=== PATIENT | female | born 1955 | race Caucasian/White ===

== ENCOUNTER 2024-04-23 07:03 | Outpatient (CLI) | payer BC, SELFPAY ==
--- NOTE | 2024-04-23 07:15 | CRLHL7_ITS ---
For Patients: As a result of the Century Cures Act, medical imaging exams and procedure reports are released immediately into your electronic medical record. You may view this report before your referring provider. If you have questions, please contact your health care provider. CLINICAL HISTORY: polycythemia vera, hepatic splenomegaly COMPARISON: none TECHNIQUE: Real time dykes scale imaging and color Doppler analysis was performed of the abdomen. FINDINGS: Benign intrahepatic cyst within the left hepatic lobe is present measuring 1.2 x 1.3 x 1.2 cm. The liver measures 17.3 cm. Mild increased echotexture of the liver noted. Normal patency of the main portal vein. The spleen measures 14.6 cm. The visualized pancreas appears normal. The proximal abdominal aorta and IVC appear normal. There is no evidence of ascites. The gallbladder is of normal size and there is no evidence of sludge or stones within the gallbladder lumen. The gallbladder wall measures 1 mm in thickness. The common bile duct measures 4.8 mm in size within the terrell hepatis. Simple cyst right kidney measures 1.5 x 2.0 x 1.2 cm. The right kidney measures 11.0 cm in length and the left kidney measures 11.3 cm. There is no evidence of a renal calculus or hydronephrosis. IMPRESSION: Splenomegaly. Fatty liver. Dictated by Lazaro Jung MD @ 04/24/2024 6:27:13 AM (Electronically Signed)
== END 2024-04-23 07:04 | disposition home or self-care (01) ==
PROVIDERS: Visit Provider Internal Medicine Hematology & Oncology
DX: D45 Polycythemia vera (principal); K76.0 Fatty (change of) liver, not elsewhere classified; R16.1 Splenomegaly, not elsewhere classified
CPT/HCPCS: 76700

== ENCOUNTER 2024-08-12 09:30 | Outpatient (RCR) | payer BC, SELFPAY ==
[2024-04-14 11:34] LABS: Basophils Absolute Auto 0.05 K/uL (0.00-0.30); Basophils Percent Auto 0.6 % (0.0-3.0); Eosinophils Absolute Auto 0.14 K/uL (0.00-0.50); Eosinophils Percent Auto 1.7 % (0.0-7.0); Hematocrit 39.4 % (33.0-51.0); Hemoglobin* 11.5 gm/dL (12.0-16.0); Immature Granulocytes Abs Auto 0.01 K/uL (0.00-0.30); Immature Granulocytes Pct Auto 0.1 %; Lymphocytes Percent Auto 16.3 % (20-44); Mean Corpuscular HGB Conc 29 gm/dL (32-36); Mean Corpuscular Hemoglobin 23 pg (26-34); Mean Corpuscular Volume 77 fL (80-100); Monocytes Percent Auto 4.1 % (0.0-11.0); Neutrophils Percent Auto 77.2 % (42.0-72.0); Platelet Count* 544 K/uL (140-440); RDW Coefficient of Variation % 15.3 % (11.5-15.5); Red Blood Count 5.09 m/uL (4.00-5.20); White Blood Count* 8.06 K/uL (4.50-11.00)
[2024-04-14 11:36] LABS: Slide Review Reflex No
[2024-04-14 11:55] LABS: Albumin* 4.5 g/dL (3.3-5.0); Chloride* 105 mmol/L (96-114); Potassium* 3.6 mmol/L (3.6-5.1); Sodium* 139 mmol/L (135-149)
[2024-04-14 11:57] LABS: Anion Gap 4 mEq/L (7-15); Aspartate Amino Transferase* 22 U/L (12-35); Bilirubin Total* 0.3 mg/dL (0.1-1.5); Carbon Dioxide* 30 mmol/L (20-32); Creatinine* 0.6 mg/dL (0.5-1.5); Est. Creatinine Clearance* 43.18; Estimated Glomerular Filt Rate 98 ml/min
[2024-04-14 11:58] LABS: Alanine Aminotransferase* 11 U/L (4-35); Alkaline Phosphatase* 44 U/L (40-150); Blood Urea Nitrogen* 9 mg/dL (7-30); Calcium* 9.7 mg/dL (8.4-10.6); Glucose* 88 mg/dL (60-115); Lactate Dehydrogenase* 150 U/L (120-246); Total Protein* 6.4 g/dL (6.0-8.3)
[2024-05-12 09:35] LABS: Basophils Absolute Auto 0.05 K/uL (0.00-0.30); Basophils Percent Auto 0.8 % (0.0-3.0); Eosinophils Percent Auto 1.6 % (0.0-7.0); Hematocrit 42.5 % (33.0-51.0); Hemoglobin* 12.4 gm/dL (12.0-16.0); Immature Granulocytes Abs Auto 0.01 K/uL (0.00-0.30); Immature Granulocytes Pct Auto 0.2 %; Lymphocytes Percent Auto 18.3 % (20-44); Mean Corpuscular HGB Conc 29 gm/dL (32-36); Mean Corpuscular Hemoglobin 23 pg (26-34); Mean Corpuscular Volume 79 fL (80-100); Neutrophils Percent Auto 75.1 % (42.0-72.0); Platelet Count* 537 K/uL (140-440); RDW Coefficient of Variation % 17.7 % (11.5-15.5); Red Blood Count 5.38 m/uL (4.00-5.20); White Blood Count* 6.07 K/uL (4.50-11.00)
[2024-05-12 09:40] LABS: Slide Review Reflex No
--- NOTE | 2024-05-19 14:15 | ONC.NURNOTE ---
DOSE CHANGE CALLED TO [facility]I INCREASE HYDREA TO 1000MG sat,SAT, SUN 500 MG , , , PATIENT CORRECTLY STATED DOSE CHANGE APPTS REVIEWED FOR NEXT MONTH REFILLS NEEDED
[2024-06-16 10:21] LABS: Basophils Absolute Auto 0.03 K/uL (0.00-0.30); Basophils Percent Auto 0.5 % (0.0-3.0); Eosinophils Absolute Auto 0.07 K/uL (0.00-0.50); Eosinophils Percent Auto 1.2 % (0.0-7.0); Hematocrit 41.6 % (33.0-51.0); Hemoglobin* 12.5 gm/dL (12.0-16.0); Immature Granulocytes Abs Auto 0.01 K/uL (0.00-0.30); Immature Granulocytes Pct Auto 0.2 %; Mean Corpuscular HGB Conc 30 gm/dL (32-36); Mean Corpuscular Hemoglobin 25 pg (26-34); Mean Corpuscular Volume 82 fL (80-100); Monocytes Percent Auto 4.4 % (0.0-11.0); Neutrophils Percent Auto 76.7 % (42.0-72.0); Platelet Count* 418 K/uL (140-440); RDW Coefficient of Variation % 19.2 % (11.5-15.5); Red Blood Count 5.06 m/uL (4.00-5.20); White Blood Count* 5.69 K/uL (4.50-11.00)
[2024-06-16 10:23] LABS: Slide Review Reflex No
[2024-06-16 10:37] LABS: Albumin* 4.7 g/dL (3.3-5.0); Chloride* 106 mmol/L (96-114)
[2024-06-16 10:38] LABS: Potassium* 3.9 mmol/L (3.6-5.1); Sodium* 139 mmol/L (135-149)
[2024-06-16 10:40] LABS: Anion Gap 5 mEq/L (7-15); Bilirubin Total* 0.3 mg/dL (0.1-1.5); Blood Urea Nitrogen* 11 mg/dL (7-30); Carbon Dioxide* 28 mmol/L (20-32); Creatinine* 0.7 mg/dL (0.5-1.5); Est. Creatinine Clearance* 43.18; Estimated Glomerular Filt Rate 95 ml/min; Total Protein* 6.8 g/dL (6.0-8.3)
[2024-06-16 10:41] LABS: Calcium* 9.6 mg/dL (8.4-10.6)
[2024-06-16 10:49] LABS: Aspartate Amino Transferase* 32 U/L (12-35)
[2024-06-16 10:50] LABS: Alanine Aminotransferase* 10 U/L (4-35); Alkaline Phosphatase* 46 U/L (40-150); Glucose* 103 mg/dL (60-115); Lactate Dehydrogenase* 152 U/L (120-246)
[2024-07-15 09:48] LABS: Basophils Absolute Auto 0.03 K/uL (0.00-0.30); Basophils Percent Auto 0.6 % (0.0-3.0); Eosinophils Absolute Auto 0.09 K/uL (0.00-0.50); Eosinophils Percent Auto 1.7 % (0.0-7.0); Hematocrit 41.6 % (33.0-51.0); Hemoglobin* 12.8 gm/dL (12.0-16.0); Immature Granulocytes Abs Auto 0.01 K/uL (0.00-0.30); Immature Granulocytes Pct Auto 0.2 %; Lymphocytes Percent Auto 19.3 % (20-44); Mean Corpuscular HGB Conc 31 gm/dL (32-36); Mean Corpuscular Hemoglobin 27 pg (26-34); Mean Corpuscular Volume 87 fL (80-100); Monocytes Percent Auto 4.6 % (0.0-11.0); Neutrophils Percent Auto 73.6 % (42.0-72.0); Platelet Count* 334 K/uL (140-440); RDW Coefficient of Variation % 18.4 % (11.5-15.5); White Blood Count* 5.43 K/uL (4.50-11.00)
[2024-07-15 09:51] LABS: Slide Review Reflex No
--- NOTE | 2024-07-17 13:58 | ONC.NURNOTE ---
lab results called to patient as within parameters next appts reviewed for lab/MD
[2024-08-12 09:34] LABS: Basophils Absolute Auto 0.02 K/uL (0.00-0.30); Basophils Percent Auto 0.4 % (0.0-3.0); Eosinophils Absolute Auto 0.07 K/uL (0.00-0.50); Eosinophils Percent Auto 1.5 % (0.0-7.0); Hematocrit 39.5 % (33.0-51.0); Hemoglobin* 12.7 gm/dL (12.0-16.0); Immature Granulocytes Abs Auto 0.01 K/uL (0.00-0.30); Immature Granulocytes Pct Auto 0.2 %; Lymphocytes Percent Auto 19.5 % (20-44); Mean Corpuscular HGB Conc 32 gm/dL (32-36); Mean Corpuscular Hemoglobin 29 pg (26-34); Mean Corpuscular Volume 90 fL (80-100); Monocytes Percent Auto 3.3 % (0.0-11.0); Neutrophils Percent Auto 75.1 % (42.0-72.0); Platelet Count* 357 K/uL (140-440); RDW Coefficient of Variation % 17.4 % (11.5-15.5); Red Blood Count 4.41 m/uL (4.00-5.20); White Blood Count* 4.61 K/uL (4.50-11.00)
[2024-08-12 09:36] LABS: Slide Review Reflex No
[2024-08-12 09:47] LABS: Albumin* 4.4 g/dL (3.3-5.0); Chloride* 104 mmol/L (96-114); Potassium* 3.8 mmol/L (3.6-5.1); Sodium* 137 mmol/L (135-149)
[2024-08-12 09:49] LABS: Creatinine* 0.6 mg/dL (0.5-1.5); Est. Creatinine Clearance* 43.18; Estimated Glomerular Filt Rate 98 ml/min
[2024-08-12 09:50] LABS: Alkaline Phosphatase* 48 U/L (40-150); Anion Gap 6 mEq/L (7-15); Aspartate Amino Transferase* 18 U/L (12-35); Bilirubin Total* 0.3 mg/dL (0.1-1.5); Blood Urea Nitrogen* 13 mg/dL (7-30); Carbon Dioxide* 27 mmol/L (20-32); Glucose* 89 mg/dL (60-115); Lactate Dehydrogenase* 150 U/L (120-246); Total Protein* 6.5 g/dL (6.0-8.3)
[2024-08-12 09:51] LABS: Alanine Aminotransferase* 9 U/L (4-35); Calcium* 9.5 mg/dL (8.4-10.6)
== END 2024-10-11 23:59 | disposition home or self-care (01) ==
LOC: CCIC 09:30
PROVIDERS: Visit Provider Internal Medicine Hematology & Oncology
DX: D45 Polycythemia vera (principal); Z79.82 Long term (current) use of aspirin
CPT/HCPCS: 36415; 80053; 83615; 85025; 99202; 99205; 99213; 99214; G0463

== ENCOUNTER 2024-10-15 11:01 | Outpatient (CLI) | payer BC, SELFPAY | END 2024-10-15 11:02 | disposition home or self-care (01) | LOC: NFLDREF 10-25 23:29 | PROVIDERS: Visit Provider Internal Medicine Hematology & Oncology | DX: D45 Polycythemia vera (principal) | CPT/HCPCS: 80053; 83615 ==

== ENCOUNTER 2025-04-05 13:35 | Outpatient (CLI) | payer MEDICARE, SELFPAY ==
--- NOTE | 2025-04-05 13:45 | CRLHL7_ITS ---
For Patients: As a result of the Century Cures Act, medical imaging exams and procedure reports are released immediately into your electronic medical record. You may view this report before your referring provider. If you have questions, please contact your health care provider. Indication: Cerebral aneurysm. Technique: MRI Head: Performed without and with intravenous contrast. MRA Head: Performed without IV contrast. MRA Neck: Performed without and with intravenous contrast. Contrast: 20 cc Dotarem. Comparison: None relevant available at the time of interpretation. Findings: MRI Head: The corpus callosum, pituitary gland clivus appear intact. Mild degenerative change visualized upper cervical spine. There is no restricted diffusion. Punctate microhemorrhage left frontoparietal operculum and left occipital lobe. The ventricles are proportionate to the cerebral sulci. The 4th ventricle appears midline. The basal cisterns appear patent. No abnormal extra-axial fluid collection identified. Mild parenchymal volume loss. Scattered T2 FLAIR hyperintense foci within the subcortical and periventricular white matter, favored to represent chronic ischemic microvascular disease. There is no intracranial mass, abnormal mass-effect or midline shift identified. No abnormal enhancement. Thinning of the right ocular lens. MRA Head: There is susceptibility artifact in the region of the left supraclinoid ICA related to previous aneurysm coiling. There is a 2 mm focus of flow related enhancement at the base of coiling. No hemodynamically significant stenosis. No proximal large vessel occlusion. MRA Neck: Mild (less than 50 % stenosis) atherosclerotic disease of the internal carotid arteries by NASCET criteria. No dissection or occlusion. Vertebral arteries appear patent. Impression: MRI Head: 1. No acute/subacute infarct. 2. Mild chronic ischemic microvascular disease. MRA Head: 1. Susceptibility artifact along the left supraclinoid ICA, presumably related to previous aneurysm coiling. Small, 2 mm focus of flow related enhancement within this suggests the possibility of a small amount of either residual or recurrent filling related to the aneurysm. No previous angiogram is available for comparison at this time. Recommend correlation with previous examinations. 2. No hemodynamic significant stenosis or proximal large vessel occlusion. MRA Neck: 1. Mild (less than 50 % stenosis) atherosclerotic disease of the internal carotid arteries by NASCET criteria. Dictated by Victorino Connelly MD @ 04/05/2025 3:34:53 PM (Electronically Signed)
== END 2025-04-05 13:36 | disposition home or self-care (01) ==
PROVIDERS: PCP Physician Assistant Medical; Visit Provider Physician Assistant Medical
DX: I67.1 Cerebral aneurysm, nonruptured (principal); I67.82 Cerebral ischemia; I65.23 Occlusion and stenosis of bilateral carotid arteries; R20.0 Anesthesia of skin; R20.2 Paresthesia of skin; H53.8 Other visual disturbances
CPT/HCPCS: 70544; 70549; 70553; A9575

== ENCOUNTER 2025-05-06 09:43 | Outpatient (CLI) | payer MEDICARE, SELFPAY ==
--- NOTE | 2025-05-06 09:15 | CRLHL7_ITS ---
For Patients: As a result of the Century Cures Act, medical imaging exams and procedure reports are released immediately into your electronic medical record. You may view this report before your referring provider. If you have questions, please contact your health care provider. INDICATION: BILATERAL SCREENING MAMMOGRAM, ASYMPTOMATIC 69 Y/O FEMALE COMPARISON: 04/27/2019, 12/24/2015, 11/18/2013 TECHNIQUE: Digital mammogram in CC and MLO projections including computer-aided detection (CAD) and tomosynthesis. BREAST COMPOSITION: The breasts are almost entirely fatty. FINDINGS: No suspicious findings. ASSESSMENT: BI-RADS 2 Benign RECOMMENDATION: Annual screening mammogram. A lay language report of this examination will be provided to the patient. Dictated by: Lazaro Jung MD @ 05/07/2025 08:32:56 (Electronically Signed)
== END 2025-05-06 09:44 | disposition home or self-care (01) ==
LOC: MAMMO 09:44
PROVIDERS: PCP Physician Assistant Medical; Visit Provider Internal Medicine Hematology & Oncology
DX: Z12.31 Encounter for screening mammogram for malignant neoplasm of breast (principal)
CPT/HCPCS: 77063; 77067

== ENCOUNTER 2025-07-22 07:11 | Outpatient (CLI) | payer MEDICARE, SELFPAY ==
--- NOTE | 2025-07-22 08:58 | P.ANES_ITS ---
Anesthesia Charges Start Date/Time Anesthesia Start Date: 07/22/25 Anesthesia Start Time: 08:10 Stop Date/Time Anesthesia Stop Date: 07/22/25 Anesthesia Stop Time: 08:54 Coding CPT Codes CPT Codes: ANES UPR LWR GI NDSC PX - 12410 ([id number]) P3 - PATIENT W/SEVERE SYS DISEASE, QK - FERMENTATION MANAGER 2-4 CNCRNT ANES PROC, QX - TRAIN CONTROL TECHNICIAN SVC W/ MD MED DIRECTION
--- NOTE | 2025-07-22 08:58 | W.ANESCHARGE ---
Anesthesia Charges Start Date/Time Anesthesia Start Date: 07/22/25 Anesthesia Start Time: 08:10 Stop Date/Time Anesthesia Stop Date: 07/22/25 Anesthesia Stop Time: 08:54 Coding CPT Codes CPT Codes: ANES UPR LWR GI NDSC PX - 08221 ([id number]) P3 - PATIENT W/SEVERE SYS DISEASE, QK - BULK PLANT SUPERVISOR 2-4 CNCRNT ANES PROC, QX - COOPERATIVE EDUCATION COORDINATOR SVC W/ MD MED DIRECTION
--- NOTE | 2025-07-22 11:33 | W.ANESCHARGE ---
Anesthesia Charges Start Date/Time Anesthesia Start Date: 07/22/25 Anesthesia Start Time: 08:10 Stop Date/Time Anesthesia Stop Date: 07/22/25 Anesthesia Stop Time: 08:54 Coding CPT Codes CPT Codes: ANES UPR LWR GI NDSC PX - 79330 ([id number]) QK - RUBY ON RAILS CONSULTANT 2-4 CNCRNT ANES PROC, QX - WEATHER FORECASTER SVC W/ MED DIRECTION, P3 - PATIENT W/SEVERE SYS DISEASE
--- NOTE | 2025-07-22 11:33 | P.ANES_ITS ---
Anesthesia Charges Start Date/Time Anesthesia Start Date: 07/22/25 Anesthesia Start Time: 08:10 Stop Date/Time Anesthesia Stop Date: 07/22/25 Anesthesia Stop Time: 08:54 Coding CPT Codes CPT Codes: ANES UPR LWR GI NDSC PX - 08024 ([id number]) QK - COMPRESSOR OPERATOR 2-4 CNCRNT ANES PROC, QX - RAW MILL OPERATOR SVC W/ MED DIRECTION, P3 - PATIENT W/SEVERE SYS DISEASE
== END 2025-07-22 07:12 | disposition home or self-care (01) ==
LOC: OP CLINIC 07:12
PROVIDERS: PCP Physician Assistant Medical; Visit Provider Surgery
DX: Z12.11 Encounter for screening for malignant neoplasm of colon (principal); Z86.0100 Personal history of colon polyps, unspecified; K21.9 Gastro-esophageal reflux disease without esophagitis; D12.0 Benign neoplasm of cecum; D12.2 Benign neoplasm of ascending colon; K62.1 Rectal polyp; R13.10 Dysphagia, unspecified
CPT/HCPCS: 00813; 43239; 45385; 88305; J2704; J3490

== ENCOUNTER 2025-07-23 16:20 | Outpatient (CLI) | payer MEDICARE, SELFPAY | END 2025-07-23 16:21 | disposition home or self-care (01) | LOC: NFLDREF 07-27 09:44 | PROVIDERS: PCP Physician Assistant Medical; Referring Provider Physician Assistant Medical; Visit Provider Physician Assistant Medical | DX: Z00.00 Encounter for general adult medical examination without abnormal findings (principal); I10 Essential (primary) hypertension; E03.9 Hypothyroidism, unspecified; Z86.39 Personal history of other endocrine, nutritional and metabolic disease; Z79.899 Other long term (current) drug therapy | CPT/HCPCS: 82306; 82607; 84439; 84443 ==

== ENCOUNTER 2025-08-03 12:45 | Outpatient (RCR) | payer BC, SELFPAY ==
--- NOTE | 2024-10-16 13:01 | ONC.NURNOTE ---
Lab results noted as stable and called to patient patient wants to wait and call back for November appts for lab
--- NOTE | 2024-11-27 14:32 | ONC.NURNOTE ---
Lab results reviewed with patient as stable- dose confirmed with Asuncion 500 mg 5d/wk and 1000 mg 2d/wk next appts reviewed for May
[2025-02-10 09:41] LABS: Hematocrit* 40.3 % (33.0-51.0); Hemoglobin* 13.6 gm/dL (12.0-16.0); Immature Granulocytes Abs Auto 0.00 K/uL (0.00-0.30); Immature Granulocytes Pct Auto 0.0 %; Lymphocytes Absolute Auto 1.14 K/uL (0.90-2.90); Mean Corpuscular HGB Conc 34 gm/dL (32-36); Mean Corpuscular Hemoglobin 33 pg (26-34); Mean Corpuscular Volume 99 fL (80-100); RDW Coefficient of Variation % 12.8 % (11.5-15.5); Red Blood Count* 4.08 m/uL (4.00-5.20); White Blood Count* 5.63 K/uL (4.50-11.00)
[2025-02-10 09:42] LABS: Slide Review Reflex No
[2025-02-10 10:01] LABS: Albumin* 4.5 g/dL (3.3-5.0); Chloride* 104 mmol/L (96-114)
[2025-02-10 10:02] LABS: Potassium* 3.6 mmol/L (3.6-5.1); Sodium* 138 mmol/L (135-149)
[2025-02-10 10:04] LABS: Alanine Aminotransferase* 18 U/L (4-35); Alkaline Phosphatase* 39 U/L (40-150); Anion Gap 5 mEq/L (7-15); Aspartate Amino Transferase* 25 U/L (12-35); Bilirubin Total* 0.4 mg/dL (0.1-1.5); Blood Urea Nitrogen* 13 mg/dL (7-30); Carbon Dioxide* 29 mmol/L (20-32); Creatinine* 0.6 mg/dL (0.5-1.5); Est. Creatinine Clearance* 40.63; Estimated Glomerular Filt Rate 98 ml/min
[2025-02-10 10:05] LABS: Calcium* 9.4 mg/dL (8.4-10.6); Glucose* 101 mg/dL (60-115); Total Protein* 6.7 g/dL (6.0-8.3)
[2025-05-12 09:50] LABS: Hematocrit* 43.3 % (33.0-51.0); Hemoglobin* 14.6 gm/dL (12.0-16.0); Immature Granulocytes Abs Auto 0.02 K/uL (0.00-0.30); Immature Granulocytes Pct Auto 0.4 %; Mean Corpuscular HGB Conc 34 gm/dL (32-36); Mean Corpuscular Hemoglobin 33 pg (26-34); Mean Corpuscular Volume 96 fL (80-100); RDW Coefficient of Variation % 12.6 % (11.5-15.5); Red Blood Count* 4.49 m/uL (4.00-5.20); White Blood Count* 5.67 K/uL (4.50-11.00)
[2025-05-12 10:14] LABS: Lymphocytes Absolute Auto 1.10 K/uL (0.90-2.90); Slide Review Reflex No
--- NOTE | 2025-05-12 15:12 | ONC.NURNOTE ---
lab results reviewed by Dr Amaya and called to Roxana as stable and within baseline to continue same dosing hydrea 1000 mg 3d/wk and 500 mg 4d/wk next lab and provider appt in Nov
[2025-08-03 12:26] LABS: Hematocrit* 39.6 % (33.0-51.0); Hemoglobin* 13.6 gm/dL (12.0-16.0); Immature Granulocytes Abs Auto 0.01 K/uL (0.00-0.30); Immature Granulocytes Pct Auto 0.2 %; Lymphocytes Absolute Auto 1.08 K/uL (0.90-2.90); Mean Corpuscular HGB Conc 34 gm/dL (32-36); Mean Corpuscular Hemoglobin 33 pg (26-34); Mean Corpuscular Volume 95 fL (80-100); RDW Coefficient of Variation % 13.5 % (11.5-15.5); Red Blood Count* 4.15 m/uL (4.00-5.20); White Blood Count* 5.28 K/uL (4.50-11.00)
[2025-08-03 12:30] LABS: Slide Review Reflex No
[2025-08-03 12:56] LABS: Albumin* 4.3 g/dL (3.3-5.0); Chloride* 99 mmol/L (96-114)
[2025-08-03 12:57] LABS: Potassium* 4.1 mmol/L (3.6-5.1); Sodium* 134 mmol/L (135-149)
[2025-08-03 12:59] LABS: Alanine Aminotransferase* 14 U/L (4-35); Alkaline Phosphatase* 46 U/L (40-150); Anion Gap 6 mEq/L (7-15); Aspartate Amino Transferase* 23 U/L (12-35); Bilirubin Total* 0.4 mg/dL (0.1-1.5); Blood Urea Nitrogen* 13 mg/dL (7-30); Carbon Dioxide* 29 mmol/L (20-32); Creatinine* 0.7 mg/dL (0.5-1.5); Est. Creatinine Clearance* 40.63; Estimated Glomerular Filt Rate 94 ml/min
[2025-08-03 13:00] LABS: Calcium* 9.2 mg/dL (8.4-10.6); Glucose* 92 mg/dL (60-115); Total Protein* 6.5 g/dL (6.0-8.3)
== END 2025-08-09 23:59 | disposition home or self-care (01) ==
LOC: CCIC 12:45
PROVIDERS: Clinical Nurse Specialist; Visit Provider Internal Medicine Hematology & Oncology
DX: D45 Polycythemia vera (principal); Z79.64 Long term (current) use of myelosuppressive agent; Z79.82 Long term (current) use of aspirin
CPT/HCPCS: 36415; 80053; 83615; 85025; 99214; G0463

== ENCOUNTER 2025-08-26 15:05 | Outpatient (CLI) | payer BC, SELFPAY ==
--- NOTE | 2025-08-26 15:00 | CRLHL7_ITS ---
For Patients: As a result of the Century Cures Act, medical imaging exams and procedure reports are released immediately into your electronic medical record. You may view this report before your referring provider. If you have questions, please contact your health care provider. INDICATION: Nicotine use. Smoked 30 years 1 pack per day. Quit 2015. TECHNIQUE: Low-dose lung cancer screening non-contrast CT chest. Dose reduction techniques were used. COMPARISON: Chest radiograph 03/18/2025. FINDINGS: MEDIASTINUM/SOFT TISSUES: No pleural or pericardial effusion. Calcified nodes consistent with prior granulomatous disease. No pathologic lymphadenopathy. Aortic atherosclerosis. Unenhanced thoracic aorta and main pulmonary arteries are normal in caliber. Coronary artery calcifications. Heart size is within normal limits. Soft tissues of the thoracic wall are unremarkable. LUNGS: No pneumothorax. Central airways are patent. Incidental calcified granuloma in the right middle lobe. Probable 2 mm noncalcified granuloma in the superior segment of the right lower lobe. Lungs otherwise clear. UPPER ABDOMEN: Splenomegaly extends below the field of view but measures 14.7 cm in AP dimension. Incompletely characterized 13 mm low density in the left lobe of the liver. Additional 28 mm low-attenuation focus in the right lobe on image 120 of series 2. Visualized upper abdomen is otherwise unremarkable. BONES: No acute or suspicious osseous abnormality. Degenerative changes of the spine. IMPRESSION: 1. Right lower lobe 2 mm nodule (Lung-RADS Category 2: Benign appearance or behavior). 2. Recommendation: Continue annual screening, if eligible, with low-dose chest CT in 12 months. 3. Incompletely characterized low-density liver lesions. Follow-up CT or MRI liver protocol recommended for further evaluation. 4. Splenomegaly. Dictated by Shine Hammond MD @ 08/27/2025 8:59:03 AM Please note that all CT scans at this facility use dose modulation, iterative reconstruction, and/or weight-based dosing when appropriate to reduce radiation dose to as low as reasonably achievable. Dictated by: Shine Hammond MD @ 08/27/2025 08:59:20 (Electronically Signed)
--- NOTE | 2025-08-26 15:30 | CRLHL7_ITS ---
For Patients: As a result of the Century Cures Act, medical imaging exams and procedure reports are released immediately into your electronic medical record. You may view this report before your referring provider. If you have questions, please contact your health care provider. XR DXA Bone Mineral Density (BMD) Reason for exam: Bone density screening. Current height (inches): 63.0 Weight (lbs.): 170.0 Menopause age: 51 Ethnicity: White 1. Have you had a previous hip or vertebral fracture? No. 2. Have you had any fractures during your adult life which did not result from significant trauma (e.g., auto accident)? No. 3. Did either of your parents have a hip fracture? No. 4. Do you smoke? No. 5. Have you ever taken Glucocorticoids? No. 6. Do you have rheumatoid arthritis? No. 7. Do you have secondary osteoporosis? No. 8. Do you drink 3 or more alcoholic drinks per day? No. 9. Are you being treated for osteoporosis? No. 10. Have you ever taken any of the following medications: Actonel, Evista, Fosamax, Miacalcin, Reclast, Boniva, Forteo, HRT (i.e., estrogen/hormone therapy), Protelos, Prolia, Vitamin D, Calcium, other ??? please specify. ANSWER: No. 11. Do you have any of the following medical conditions: Anorexia or bulimia, asthma or emphysema, end stage renal disease, hyperparathyroidism, any seizure disorders, cancer, inflammatory bowel diseases, hysterectomy, other ??? please specify. ANSWER: Yes; cancer, platelet disorder. 12. What was your maximum height (inches)? 63. 13. Do you perform weightbearing exercise regularly? No. 14. Do you regularly consume dairy products? Yes. 15. Do you drink caffeinated beverages? Yes. 16. At what age did your period start? 13. 17. Are you premenopausal? No. 18. How many full-term pregnancies have you had? 2. 19. Have you ever missed your period for more than 6 months in a row (not including or menopause)? No. TECHNIQUE: Bone mineral density study was performed using the [employer]. FINDINGS: The results of the study expressed as bone mineral density (BMD) are as follows: Lumbar Spine L1 to L4: BMD: 0.793 g/cm2. T-score: -2.3. Z-score: -0.3. Neck Left: BMD: 0.560 g/cm2. T-score: -2.6. Z-score: -0.9. Right: BMD: 0.592 g/cm2. T-score: -2.3. Z-score: -0.6. Total Left: BMD: 0.806 g/cm2. T-score: -1.1. Z-score: 0.3. Right: BMD: 0.835 g/cm2. T-score: -0.9. Z-score: 0.6. IMPRESSION: Osteoporosis. LAZARO MOSS M.D. Diagnostic Radiologist [email or web address] Transcribed: 2:[address]/Dictated by: Lazaro Moss MD @ 08/27/2025 9:19:00 AM (Electronically Signed)
== END 2025-08-26 15:06 | disposition home or self-care (01) ==
PROVIDERS: PCP Physician Assistant Medical; Visit Provider Physician Assistant Medical
DX: Z12.2 Encounter for screening for malignant neoplasm of respiratory organs (principal); R91.8 Other nonspecific abnormal finding of lung field; K76.9 Liver disease, unspecified; R16.1 Splenomegaly, not elsewhere classified; Z87.891 Personal history of nicotine dependence; Z13.820 Encounter for screening for osteoporosis; M81.0 Age-related osteoporosis without current pathological fracture
CPT/HCPCS: 71271; 77080